=== PATIENT | male | born 1955 | race Caucasian/White ===

== ENCOUNTER 2018-08-19 21:44 | Inpatient (IN) | payer MEDICAID ==
[~2018-08-19] VITALS: Ht 170.2 cm; Wt 97.0 kg
[2018-08-20] MEDS ORDERED: IPRATROPIUM BROMIDE (0.02%) 0.5MG/2.5ML NEB HHN STA (00:14)
[2018-08-20] MEDS ORDERED: METHYLPREDNISOLONE SOD SUCC 125 MG/2 ML VIAL IV STA (00:14)
[2018-08-20] MEDS ORDERED: ALBUTEROL (0.083%) 2.5MG/3ML NEB HHN STA (00:14)
[2018-08-20] MEDS ORDERED: ASPIRIN 81MG TABLET PO ONE (00:15)
[2018-08-20] MEDS ORDERED: NITROGLYCERIN 0.4MG TABLET SL SL PRN (00:15)
[2018-08-20] MEDS ORDERED: LEVOFLOXACIN 750MG PREMIX 150 ML IV ONE (01:00)
[2018-08-20] MEDS ORDERED: SODIUM CHLORIDE 0.9% 1000ML BAG (SEPSIS BOLUS) IV ONE (01:00)
[2018-08-20 02:05] LABS: CHLORIDE 105 mEq/L (98-107)
[2018-08-20 02:07] LABS: BASOPHILS % 0.5 % (0.0-2.0); EOSINOPHILS % 2.1 % (0.0-5.0); HEMATOCRIT. 37.7 % (42.0-52.0); HEMOGLOBIN. 13.1 g/dL (14.0-18.0); LYMPHOCYTES % 33.1 % (20.0-50.0); MEAN CORPUSCULAR HEMOGLOBIN 29.6 pg (28.0-32.0); MEAN CORPUSCULAR VOLUME 84.8 fL (80.0-94.0); MEAN PLATELET VOLUME 8.3 fl (7.4-10.4); MONOCYTES % 4.3 % (2.0-8.0); PLATELET 206 x1000/uL (130-400); RED BLOOD CELL COUNT 4.44 mill/uL (4.7-6.1); RED CELL DISTRIBUTION WIDTH 14.1 % (11.6-14.6)
[2018-08-20 02:17] LABS: D-DIMER 0.27 mg/L FEU (<0.50); PARTIAL THROMBOPLASTIN TIME 25.4 sec (23.4-31.0); PROTHROMBIN TIME 9.8 sec (9.1-11.1)
[2018-08-20] MEDS ORDERED: POTASSIUM CHLORIDE 20MEQ TABLET SR PO ONE (03:00)
[2018-08-20] MEDS ORDERED: IPRATROPIUM/ALBUTEROL 0.5-3(2.5)MG/3ML NEB INH PRN (07:00)
[2018-08-20] MEDS ORDERED: GUAIFENESIN 200MG/10ML SUGAR FREE UDC PO PRN (07:00)
[2018-08-20] MEDS ORDERED: HYDROCODONE/ACETAMINOPHEN 5/325MG TABLET PO PRN (07:00)
[2018-08-20] MEDS ORDERED: ONDANSETRON HCL 4MG/2ML INJ IV PRN (07:00)
[2018-08-20] MEDS ORDERED: ACETAMINOPHEN 325MG TABLET PO PRN (07:00)
[2018-08-20] MEDS ORDERED: CLONIDINE 0.1MG TABLET PO PRN (07:00)
[2018-08-20] MEDS ORDERED: SODIUM CHLORIDE 0.45% 1,000 ML IV SCH (11:30)
[2018-08-20] MEDS ORDERED: ENOXAPARIN 30MG/0.3ML SYR SUBCUT SCH (11:30)
[2018-08-20 12:00] VITALS: BP 143/71
[2018-08-20 13:06] VITALS: BP 16/143
[2018-08-21] MEDS ORDERED: LEVOFLOXACIN 500MG PREMIX 100 ML IV SCH (01:00)
== END 2018-08-20 15:50 | disposition home or self-care (01) | DRG 145 ==
LOC: ER 21:44 → 5WST 08-20 03:27 → SUPCPDRO 08-20 06:40 → ENRESERV 08-20 10:39
PROVIDERS: ADMIT Hospitalist; ATTEND Hospitalist
DX: J20.9 Acute bronchitis, unspecified (principal); C78.00 Secondary malignant neoplasm of unspecified lung; C61 Malignant neoplasm of prostate; E03.9 Hypothyroidism, unspecified; J45.909 Unspecified asthma, uncomplicated
CPT/HCPCS: 36415; 71045; 83605; 83880; 84484; 85379; 87804; 93005; 93970; 96365; 96375; 99285; J1956; J2930; J7030; J7611

== ENCOUNTER 2024-09-29 13:08 | Emergency (ER) | payer MEDICARE ==
[~2024-09-29] VITALS: Ht 172.7 cm; Wt 73.0 kg
[~2024-09-29 13:08] MED LIST: AMLO5TAB88 PO; ASPI-1406 PO; ATOR10TA PO; HYDR25TA PO; LEVO75TA7 PO; PRED5TAB PO
[2024-09-29 13:33] VITALS: BP 168/59; RESP 16; TEMP 98.1; O2SAT 99
[2024-09-29 13:47] VITALS: PULSE 83; O2SAT 98
[2024-09-29] MEDS ORDERED: AMOX1TAB16 MT (16:10)
[2024-09-29] MEDS ORDERED: AZIT500T8 MT (16:11)
== END 2024-09-29 16:58 | disposition home or self-care (01) ==
LOC: ER 13:22
DX: J18.9 Pneumonia, unspecified organism (principal); I10 Essential (primary) hypertension; E03.9 Hypothyroidism, unspecified; Z79.82 Long term (current) use of aspirin; Z88.1 Allergy status to other antibiotic agents; Z79.899 Other long term (current) drug therapy; Z98.890 Other specified postprocedural states
CPT/HCPCS: 71045; 99283